=== PATIENT | female | born 1965 | race Caucasian/White ===

== ENCOUNTER 2022-05-01 10:00 | Outpatient (RCR) | payer BC, SELFPAY ==
--- NOTE | 2022-04-28 15:19 | ONC.NURNOTE ---
PICC line dressing change. . bloody and damp under dressing. slight pink at insertion site. no other reddness or drainage. teaching re if like this again have the dressing change. reviewed s/s infection. reddness drainage. fever chills.
[2022-04-28] MEDS: SODIUM CHLORIDE 0.9 % (FLUSH) 10 ML SYRINGE IVF (15:35)
--- NOTE | 2022-04-28 17:21 | ONC.NURNOTE ---
Diagnosis: Scarlet fever, midline catheter for IV antibiotic therapy. Here for midline catheter removal.
--- NOTE | 2022-05-01 11:08 | PC.NURSE ---
Removed Midline IV/PICC line today. Pt tolerated well. Arm circumference at the level of the insertion site was 33 cm. Measurement from AC to insertion site was 10 cm. Measurement from insertion site to white wing was 3 cm. Total length of catheter measured after removal was 22 cm. Site was very slightly red at site. Cleaned skin after removing line and applied petroleum ointment on the 4x4 dressing and covered with an occlusive dressing.
== END 2022-10-25 23:59 | disposition home or self-care (01) ==
LOC: CCIC 10:00
PROVIDERS: Visit Provider Clinical Nurse Specialist
DX: Z45.2 Encounter for adjustment and management of vascular access device (principal)
CPT/HCPCS: 36589; A4221